=== PATIENT | female | born 1990 | race Caucasian/White ===

== ENCOUNTER → 2020-04-29 | Outpatient (CLI) | payer BC ==
--- NOTE | 2020-04-29 08:31 | US ---
EXAMINATION TYPE: US abdomen complete DATE OF EXAM: 04/29/2020 COMPARISON: NONE CLINICAL HISTORY: R09.89 SPECIFIED SYMPTOMS WITH CIRCULATORY AND RESPIRATORY SYS. Bruit mid upper hector drant heard by 2 physicians per patient. Patient stated has been on Control x 12 years. EXAM MEASUREMENTS: Liver Length: 15.1 cm Gallbladder Wall: 0.2 cm CBD: 0.4 cm Spleen: 9.4 cm Right Kidney: 10.0 x 5.2 x 3.7 cm Left Kidney: 10.7 x 4.6 x 5.8 cm Pancreas: wnl Liver: Anterior right liver lobe and left liver lobe is lobular hypoechoic mass with some internal v ascularity and size = 5.4 x 5.1 x 3.9cm. MPV and Hepatic Veins are patent by Color Flow assessment. Gallbladder: wnl Evidence for sonographic Herndon's sign: no CBD: wnl Spleen: wnl Right Kidney: No hydronephrosis or masses seen Left Kidney: No hydronephrosis or masses seen Upper IVC: wnl Abd Aorta: wnl IMPRESSION: Masses measuring up to 5.4 cm with internal vascularity involving the right and left lobe of the liver. Recommend CT scan of the abdomen with contrast
== END | disposition home or self-care (01) ==
LOC: RADUSWWP 07:34
PROVIDERS: ATTEND Family Medicine
DX: R16.0 Hepatomegaly, not elsewhere classified (principal)
CPT/HCPCS: 76700

== ENCOUNTER → 2020-05-03 | Outpatient (CLI) | payer BC ==
--- NOTE | 2020-05-03 16:03 | CT ---
EXAMINATION TYPE: CT abdomen w con DATE OF EXAM: 05/03/2020 HISTORY: abnormal US CT DLP: 548mGycm Automated Exposure Control for Dose Reduction was Utilized. CONTRAST: CT scan of the abdomen is performed with IV Contrast, patient injected with 100 mL of Isovue 300. COMPARISON: Ultrasound abdomen 4 days ago FINDINGS: LUNG BASES: No significant abnormality is appreciated. LIVER/GB: The left hepatic lobe there is a heterogeneous hyperdense lesion slightly bulging anterior and superior contour measuring roughly 9.6 x 5.3 cm coronal image 17 that becomes isodense relative t o remainder of liver on delayed images. Patent nondilated portal vein. Patent hepatic veins draining into IVC. No surrounding ascites. No definitive additional lesion in the right hepatic lobe. PANCREAS: No significant abnormality is seen. SPLEEN: No significant abnormality is seen. ADRENALS: No significant abnormality is seen. KIDNEYS: Symmetric cortical medullary uptake and excretion without hydronephrosis. BOWEL: Oral contrast does not reach level of the mid to distal loops in the right abdomen. No suspici ous small or large bowel dilatation. Patient has little intra-abdominal fat. LYMPH NODES: No greater than 1cm abdominal lymph nodes are seen. OSSEOUS STRUCTURES: Slight underlying levoconvex scoliosis. Mild to moderate disc space narrowing L5- S1 level with tiny posterior disc herniation. OTHER: No significant additional abnormality is seen. 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 Nonurgent Liver protocol contrast enhanced MRI can be performed to further assess and c haracterize.
== END | disposition home or self-care (01) ==
LOC: RADCTMAIN 14:39
PROVIDERS: ATTEND Nurse Practitioner
DX: R16.0 Hepatomegaly, not elsewhere classified (principal)
CPT/HCPCS: 74160; Q9967